=== PATIENT | female | born 1995 | race African-American/Black ===

== ENCOUNTER 2022-02-27 10:44 | Emergency (ER) | payer MEDICAID ==
[~2022-02-27] VITALS: Ht 167.6 cm; Wt 74.0 kg
[2022-02-27 10:59] VITALS: BP 112/62
[2022-02-27] MEDS ORDERED: IBUPROFEN 600MG TABLET PO ONE (11:45)
[2022-02-27] MEDS ORDERED: HYDR-4001 MT (12:27)
[2022-02-27] MEDS ORDERED: IBUP-2029 MT (12:27)
== END 2022-02-27 13:18 | disposition home or self-care (01) ==
LOC: ER 10:44
DX: S62.395A Other fracture of fourth metacarpal bone, left hand, initial encounter for closed fracture (principal); W22.8XXA Striking against or struck by other objects, initial encounter; Y93.89 Activity, other specified; Y92.89 Other specified places as the place of occurrence of the external cause
CPT/HCPCS: 29125; 73130; 99283; A4565